=== PATIENT | female | born 1995 ===

== ENCOUNTER 2016-07-01 17:31 | Emergency (ER) | payer BC ==
--- NOTE | 2016-07-01 18:17 | UC ---
FLU HPI - HPI Summary HPI Summary: 4 days of cough body aches sore throat fever cough with blood tinged sputum - History of Current Complaint Chief Complaint: UCRespiratory Stated Complaint: SORE THROAT, AND FEVER Time Seen by Provider: 07/01/16 17:55 Hx Obtained From: Patient Hx Last Menstrual Period: control June 14 ?: No Onset/Duration: Sudden Onset, Lasting Days - 4, Still Present Severity Currently: Mild Severity Initially: Mild Associated Signs & Symptoms: Positive: Fever, Myalgia, Cough, Sore Throat, Nasal Congestion, Headache Related Hx: Possible Flu/Infectious Exposure - Allergy/Home Medications Allergies/Adverse Reactions: Allergies Allergy/AdvReac Type Severity Reaction Status Date / Time Penicillins [PCN] Allergy Hives Verified 07/01/16 17:51 PMH/Surg Hx/FS Hx/Imm Hx Previously Healthy: Yes Cardiovascular History Of: Denies: Cardiac Disorders - Surgical History Surgical History: None - Family History Known Family History: Positive: None Family History: no cardio vascular issues in family lineage - Social History Occupation: Student Lives: With Family Alcohol Use: None Substance Use Type: None Smoking Status (MU): Never Smoked Tobacco Review of Systems Constitutional: Fever Skin: Negative Eyes: Negative ENT: Sore Throat, Nasal Discharge Respiratory: Cough Cardiovascular: Negative Gastrointestinal: Negative Genitourinary: Negative Motor: Negative Neurovascular: Negative Musculoskeletal: Negative, Arthralgia, Myalgia Neurological: Headache Psychological: Negative All Other Systems Reviewed And Are Negative: Yes Physical Exam Triage Information Reviewed: Yes Appearance: No Pain Distress, Well-Nourished, Ill-Appearing - mild Vital Signs: Initial Vital Signs Temp 98.8 F 07/01/16 17:44 Pulse 95 07/01/16 17:44 Resp 20 07/01/16 17:44 BP 117/78 07/01/16 17:44 Pulse Ox 96 07/01/16 17:44 Vital Signs Reviewed: Yes Eye Exam: Normal Eyes: Positive: Conjunctiva Clear ENT Exam: Normal ENT: Positive: Normal ENT inspection, Hearing grossly normal, Pharynx normal, Nasal congestion, TMs normal. Negative: Nasal drainage, Tonsillar swelling, Tonsillar exudate, Trismus, Muffled/hoarse voice Dental Exam: Normal Neck exam: Normal Neck: Positive: Supple, Nontender, No Lymphadenopathy Respiratory Exam: Normal - sat recheck 99% Respiratory: Positive: Chest non-tender, Lungs clear, Normal breath sounds, No respiratory distress, No accessory muscle use Cardiovascular Exam: Normal Cardiovascular: Positive: RRR, No Murmur, Pulses Normal, Brisk Capillary Refill Musculoskeletal Exam: Normal Musculoskeletal: Positive: Strength Intact, ROM Intact, No Edema Neurological Exam: Normal Neurological: Positive: Alert, Muscle Tone Normal Psychological Exam: Normal Skin Exam: Normal Diagnostics - Laboratory Diagnostic Studies Completed/Ordered: influenza A positive Flu Course/Dx - Course Course Of Treatment: increase fluids, rwest ibuprofen, tylenol follow with Kd re-check prn - Differential Dx/Diagnosis Differential Diagnosis/HQI/PQRI: Influenza, Pneumonia, RSV, Upper Respiratory Infection Provider Diagnoses: Influenza A Discharge - Discharge Plan Condition: Stable Disposition: HOME Prescriptions: Albuterol HFA INHALER* [Ventolin HFA Inhaler*] 2 puff INH Q6H PRN #1 mdi PRN Reason: cough and wheezing Spacer/Aerosol-Holding Chamber [Aerochamber Plus] 1 mis XX SEE INSTRUCTIONS #1 mis Patient Education Materials: Ibuprofen (By mouth), How to Use a Metered-Dose Inhaler (ED), Influenza (ED) Forms: *School Release Referrals: [facility] KD Santiago [Medical Doctor] - If Needed Non Staff,Doctor [Primary Care Provider] -
[2016-07-01] MEDS ORDERED: Albuterol HFA INHALER* 8 gm MDI INH ONE (18:31)
== END 2016-07-01 18:40 | disposition home or self-care (01) ==
LOC: UCEAST 17:31
DX: J09.X2 Influenza due to identified novel influenza A virus with other respiratory manifestations (principal); Z88.0 Allergy status to penicillin
CPT/HCPCS: 87502; 99202; A9270-GY; G0463